=== PATIENT | male | born 1985 | race Caucasian/White ===

== ENCOUNTER 2019-02-28 02:45 | Observation (INO) | payer BC, OTHER ==
[2019-02-28 07:49] LABS: Troponin I Less than 0.010 ng/mL (< 0.028)
[2019-02-28] MEDS ORDERED: Senokot S 8.6-50 MG TAB PO PRN (10:17)
[2019-02-28] MEDS ORDERED: Ondansetron PF 4 MG/2 ML Vial IVP PRN (10:17)
[2019-02-28] MEDS ORDERED: Ondansetron ODT 4 MG TAB PO PRN (10:17)
[2019-02-28] MEDS ORDERED: Calcium Carbonate 500 MG ChewTAB PO PRN (10:17)
[2019-02-28] MEDS ORDERED: Nitroglycerin 0.4 MG TAB (25 Tab Bottle) PO PRN (10:17)
[2019-02-28] MEDS ORDERED: Acetaminophen 325 MG TAB PO PRN (10:17)
[2019-02-28 10:37] LABS: Troponin I Less than 0.010 ng/mL (< 0.028)
--- NOTE | 2019-02-28 11:05 | HP ---
PRIMARY CARE: The patient sees Dr. Cedeño, in [place], [place]. CHIEF COMPLAINT: Chest discomfort. HISTORY OF PRESENT ILLNESS: The patient is a 33-year-old male with hypertension, CKD stage 3, tobacco dependence, and strong family history of heart disease, presented to the emergency room with chest discomfort. The chest discomfort started yesterday around 8:00 p.m. while he was working on his computer. It was dull in nature/squeezing in nature, along with diaphoresis and shortness of breath. The pain was radiating to his left arm. He denies any nausea, vomiting. No heartburn, dyspepsia, fever, chills, cough, shortness of breath, wheezing reported. Over the last 2 months, patient gets short of breath when he exercises. He denies recent immobilization travel. In the emergency room, his initial vital signs showed temperature 98.5, respiration of 22, pulse of 100, blood pressure of 141/94 with O2 saturation 96% on room air. PAST MEDICAL HISTORY: 1. Hypertension. 2. CKD stage 3. 3. ADHD. 4. Strong family history of heart disease. PAST SURGICAL HISTORY: Hernia repair at the age of 4. ALLERGIES: NO KNOWN DRUG ALLERGIES. CURRENT HOME MEDICATION: 1. Lisinopril 10 mg daily. 2. Adderall 20 mg daily. SOCIAL HISTORY: The patient currently lives at home. He works in [employer]. He chews tobacco. Denies any alcohol or drug use. FAMILY HISTORY: Positive for premature coronary artery disease. REVIEW OF SYSTEMS: All other review of systems was reviewed and were found negative. PHYSICAL EXAMINATION: VITAL SIGNS: As discussed above. GENERAL: A 33-year-old male, in no apparent distress. Chest discomfort improved after metoprolol in the emergency room. HEENT: Head atraumatic, normocephalic. Sclerae anicteric. Moist mucous membranes. No oral lesion. NECK: Supple. No JVD appreciated. No carotid bruit. LUNGS: Clear to auscultation bilaterally. No wheezing, rales, or rhonchi. HEART: S1 and S2 present. Regular rate and rhythm. No rubs, gallops, or significant murmurs appreciated. ABDOMEN: Soft, nontender. Bowel sounds present. EXTREMITIES: No edema or calf tenderness. PERIPHERAL VASCULAR: Radial pulses palpable bilaterally and equal. NEUROLOGIC: Grossly nonfocal. Moves all 4 extremities. PSYCHIATRY: Alert, awake, oriented x3. LABORATORY FINDINGS: Troponin negative. Creatinine 1.5 with BUN of 12. WBC 8.4 with hemoglobin 16.9. Creatinine was 1.51. EKG by my review showed sinus rhythm with nonspecific ST-T wave changes. His chest x-ray by my review was negative for infiltrate. IMPRESSION: 1. Chest discomfort. 2. Hypertension. 3. Chronic kidney disease stage 3. 4. Attention deficit hyperactivity disorder. 5. Family history of heart disease. 6. Tobacco dependence. PLAN: The patient will be monitored as 23-hour observation. Serial troponin's are negative. We will get exercise Cardiolite stress test due to intermediate probability for coronary artery disease. He also has HeartScore of 3. He has strong family history of heart disease. We will continue aspirin. We will check fasting lipid profile in a.m. Lifestyle modification was emphasized including tobacco cessation. We will resume lisinopril. Plan of care was discussed with the patient in detail. He stated understanding. Job ID: [id number]
[2019-02-28] MEDS ORDERED: Lisinopril 10 MG TAB PO SCH (13:00)
--- NOTE | 2019-02-28 15:34 | NM ---
NUCLEAR MEDICINE CARDIAC PERFUSION EXAMINATION WITH EJECTION FRACTION: 02/28/19 HISTORY: 33-year-old male with chest pain. TECHNIQUE: A single day nuclear medicine cardiac perfusion examination was performed. Rest images were obtained using 10 millicuries of technetium 99m Sestamibi. Stress images were obtained using 27 millicuries of technetium 99m Sestamibi and Lexiscan. This was given as the patient did not achieved 85% maximum pr edicted heart rate on a treadmill using a Krishna protocol. FINDINGS: Tomographic images show no reversible perfusion defects. A fixed defect at the apex may represent claudio st wall attenuation. Gated images show global hypokinesis with an ejection fraction of 43%. EDV is 142 mL. LHR is 0.4. TID is 1.28. IMPRESSION: 1. Small fixed defect at the apex may represent chest wall attenuation. 2. Poor ejection fraction and global hypokinesis. POS: TPC
[2019-02-28] MEDS ORDERED: Regadenoson 0.4 MG/5 ML SYRINGE ONE (16:23)
[2019-03-01] MEDS ORDERED: Lisinopril 10 MG TAB PO SCH (09:00)
[2019-03-01] MEDS ORDERED: Aspirin 325 mg Enteric Coated Tablet PO SCH (09:00)
--- NOTE | 2019-03-03 07:17 | DIS ---
DATE OF ADMISSION: 02/28/2019 DATE OF DISCHARGE: 02/28/2019 DISCHARGE DISPOSITION: Home. Follow up with primary care physician. Primary care physician, Dr. Cedeño in [place], [place]. Echocardiogram as outpatient is recommended. Primary care physician advised to follow. BRIEF HOSPITAL COURSE: The patient is a 33-year-old male with hypertension, CKD stage 3, and tobacco dependence, presented to the emergency room with chest discomfort. Please refer to the history and physical dictated earlier for further details. The patient was admitted to the hospital with a diagnosis of chest discomfort rule out acute coronary syndrome. Serial troponins were negative. Due to elevated heart score and family history of heart disease, he underwent a Cardiolite stress test that was negative for reversible ischemia. Ejection fraction was 43% with global hypokinesis. He was advised to follow up with Cardiology as outpatient for an echocardiogram. He is chest pain free at this time. FINAL DIAGNOSES: 1. Chest discomfort, acute coronary syndrome ruled out. 2. No reversible ischemia on the stress test. 3. Ejection fraction of 43% with global hypokinesis on the stress test. The patient preferred to get an echocardiogram as outpatient. 4. Chronic kidney disease, stage 3. 5. Hypertension. 6. Attention deficit hyperactivity disorder. 7. Family history of heart disease. 8. Tobacco dependence. PLAN: Plan of care was discussed with the patient and the family in detail, they stated understanding. Job ID: [id number]
--- NOTE | 2019-03-06 14:28 | STRESS ---
Acquisition Time: 2019-02-28 12:48:00 Total Exercise Time: 00:10:58 Test Indications: CHEST PAIN Medications: Protocol: RASHAD Max HR: 131 BPM 70% of Pred: 186 BPM Max BP: 132/088 mmHG Max Work Load: 13.7 METS RESTING ECG: NORMAL SINUS RHYTHM AT 74 BPM SYMPTOMS: DYSPNEA NORMAL BP RESPONSE ECTOPY: NONE ECG STRESS: TRANSIENT T-WAVE INVERSION WITH LEXISCAN INFUSION INTERPRETATION: INDETERMINATE ECG/AWAIT NUCLEAR IMAGES FOR DEFINITIVE DIAGNOSIS Confirmed by ALLIE AYON ELLEN ([id number]) on 03/06/2019 2:28:02 PM Referred By: MD Tsering BERGER Confirmed By:LOGAN AYON PA-C
== END 2019-02-28 15:53 | disposition home or self-care (01) ==
LOC: ERS 02:45 → ERHOLD 04:42
PROVIDERS: ADMIT Internal Medicine; ATTEND Internal Medicine
DX: R07.89 Other chest pain (principal); I12.9 Hypertensive chronic kidney disease with stage 1 through stage 4 chronic kidney disease, or unspecified chronic kidney disease; N18.3 Chronic kidney disease, stage 3 (moderate); F20.0 Paranoid schizophrenia; F90.9 Attention-deficit hyperactivity disorder, unspecified type; F17.220 Nicotine dependence, chewing tobacco, uncomplicated; Z79.899 Other long term (current) drug therapy; Z98.890 Other specified postprocedural states
CPT/HCPCS: 36415; 78452; 84484; 93005; 93017; A9500; G0378; J2785

== ENCOUNTER 2019-07-08 20:19 | Inpatient (IN) | payer BC ==
[2019-07-08] MEDS ORDERED: Lorazepam 2 MG/ML VIAL ONE (20:58)
[2019-07-08] MEDS ORDERED: Magnesium 2 GM/50 ML BAG (IN WATER) ONE (20:58)
[2019-07-08] MEDS ORDERED: Aspirin 325 MG TAB ONE (20:58)
[2019-07-08] MEDS ORDERED: Enoxaparin Sodium 100 MG/ML SYRINGE ONE (20:58)
[2019-07-08] MEDS ORDERED: Diltiazem HCl 125 MG, Admixture Fee 1 EACH in Sodium Chloride 0.9% 100 ML IVPB SCH (21:45)
[2019-07-08 23:06] VITALS: BMI 32.2
[2019-07-08] MEDS ORDERED: Ondansetron PF 4 MG/2 ML Vial IVP PRN (23:30)
[2019-07-08] MEDS ORDERED: Acetaminophen 325 MG TAB PO PRN (23:30)
[2019-07-08] MEDS ORDERED: Ondansetron ODT 4 MG TAB SL PRN (23:30)
[2019-07-09] MEDS ORDERED: NS 0.9% w/ 20 MEQ KCL 1,000 ML/1,000 ML BAG IV SCH (00:45)
[2019-07-09] MEDS ORDERED: Calcium Carbonate 500 MG ChewTAB PO PRN (01:02)
[2019-07-09] MEDS ORDERED: Senokot S 8.6-50 MG TAB PO PRN (01:02)
[2019-07-09] MEDS ORDERED: Nitroglycerin 0.4 MG TAB (25 Tab Bottle) PO PRN (01:08)
--- NOTE | 2019-07-09 01:26 | HP ---
PRIMARY CARE PHYSICIAN: Dr. Gala Santana, [place]. The patient was seen and examined on 07/08. CHIEF COMPLAINT: Palpitations. HISTORY OF PRESENT ILLNESS: The patient is a 33-year-old male who presented to the emergency room at [facility] with above complaints. The patient was admitted at this facility in February of this year for chest discomfort. He underwent a stress test that was negative for reversible ischemia. His ejection fraction on the stress test was 43% with global hypokinesis. He was advised to get an echocardiogram as outpatient. He also has attention deficit hyperactivity disorder and is on Adderall. The patient presented to the emergency room with palpitations that has been ongoing for last 24 hours on and off. At this time, the palpitations lasted longer. He denies any chest discomfort, shortness of breath, lightheadedness, dizziness, or syncope. He claims to have a lot of stress lately. In the emergency room at [facility], he was found to have heart rate in 170s. He was started on Cardizem drip. He received potassium supplementation at the emergency room. PAST MEDICAL HISTORY: 1. Hypertension. 2. CKD stage 3. 3. ADHD. 4. Family history of heart disease. PAST SURGICAL HISTORY: Hernia repair at the age of 4. ALLERGIES: NO KNOWN DRUG ALLERGIES. CURRENT HOME MEDICATIONS: 1. Lisinopril 20 mg daily. 2. Protonix 40 mg daily. 3. Amphetamine 20 mg daily. SOCIAL HISTORY: The patient currently lives at home with his family. He [place] in [place]. He chews tobacco. He also consumes caffeinated sodas. No alcohol or drug use. FAMILY HISTORY: Positive for heart disease. REVIEW OF SYSTEMS: All other review of systems was reviewed and was found negative. PHYSICAL EXAMINATION: VITAL SIGNS: Initial vital signs at in the emergency room showed temperature 98.1, respirations of 26, pulse rate of 196, blood pressure of 145/110 with O2 saturation 100% on room air. GENERAL: A 33-year-old male, in no apparent distress, on Cardizem drip. HEENT: Head, atraumatic and normocephalic. Sclerae anicteric. Moist mucous membranes. No oral lesion. NECK: Supple. No JVD appreciated. No carotid bruit. LUNGS: Clear to auscultation bilaterally. No wheezing, rales, or rhonchi. HEART: S1 and S2 present. Irregularly irregular. No rubs or gallops. ABDOMEN: Soft, nontender. Bowel sounds present. EXTREMITIES: No edema or calf tenderness. NEUROLOGICAL: Grossly nonfocal. Moves all 4 extremities. PSYCHIATRIC: Alert, awake, oriented x3. SKIN: Warm and dry. LYMPH NODES: No palpable lymph nodes in the neck. PERIPHERAL VASCULAR: Radial pulses palpable bilaterally. MUSCULOSKELETAL: No joint swelling or tenderness. LABORATORY FINDINGS: CBC showed WBC 8.8, hemoglobin 17.6, hematocrit 54.4, platelet of 244. Chemistry showed sodium 138, potassium 3.2, chloride 101, bicarb 26, BUN 14, creatinine 1.52. AST of 40, ALT of 79. TSH was normal. Lactic acid 1.8. Urine drug screen was positive for amphetamine. Urinalysis was negative. Chest x-ray earlier this year was negative for acute findings. IMPRESSION: 1. Palpitations secondary to atrial fibrillation with rapid ventricular response. 2. Attention deficit hyperactivity disorder, on Adderall. 3. Chronic kidney disease, stage 3. 4. Hypertension. 5. Family history of heart disease. 6. Tobacco dependence. 7. Suspected sleep apnea. 8. Obesity with a BMI of 32.2. 9. Hypokalemia. PLAN: 1. The patient will be monitored on the telemetry unit. It would be kept n.p.o. We will consult Cardiology. He received 1 dose of Lovenox at 9:30 pm. Lovenox will be continued until further recommendations by Cardiology. Echocardiogram will be obtained. Replace potassium. Recheck labs in a.m. Gentle hydration while n.p.o. 2. We will hold Adderall and lisinopril. Plan of care was discussed with the patient in detail. He stated understanding. Job ID: [id number] [facility]
[2019-07-09] MEDS: Sodium Chloride 0.9% 1,000 ML IV SCH (01:33)
[2019-07-09 04:46] LABS: #Basophils 0.1 thou/uL (0.0-0.2); #Eosinphils 0.1 thou/uL (0.0-0.7); #Lymphocytes 2.7 thou/uL (1.20-3.40); #Monocytes 0.9 thou/uL (0.11-0.59); %Basophils 0.6 % (0.0-1.0); %Eosinophils 1.2 % (0.0-10.0); %Lymphocytes 30.8 % (21.0-51.0); %Monocytes 10.6 % (0.0-10.0); %Neutrophils 56.8 % (42.0-75.0); Hemoglobin 15.9 g/dL (14.0-18.0); Mean Corpuscular HGB CONC 34.8 g/dL (32.0-36.0); Mean Corpuscular Hemoglobin 32.5 pg (27.0-31.0); Mean Corpuscular Volume 93.2 fL (78.0-98.0); Mean Platelet Volume 8.1 fL (7.4-10.4); Platelet Count 195 thou/uL (130-400); RBC Distribution Width 12.3 % (11.5-14.5); White Blood Cell (WBC) Count 8.7 thou/uL (4.8-10.8)
[2019-07-09 05:06] LABS: Albumin 3.5 g/dL (3.5-5.0); Anion Gap 8 mmol/L (10-20); BUN (Urea Nitrogen) 11 mg/dL (8.9-20.6); BUN/Creatinine Ratio 9.65; Calc. Creatinine Clearance 132 mL/min (70-130); Calcium 8.7 mg/dL (7.8-10.44); Carbon Dioxide 22 mmol/L (22-29); Chloride 112 mmol/L (98-107); Estimated GFR-MDRD 74; Glucose 106 mg/dL (70-105); Magnesium 2.2 mg/dL (1.6-2.6); Phosphorus 2.9 mg/dL (2.3-4.7); Potassium 3.8 mmol/L (3.5-5.1); Sodium 138 mmol/L (136-145)
[2019-07-09] MEDS: Metoprolol Tartrate 25 MG TAB PO SCH ×2 (09:00→22:17)
[2019-07-09] MEDS ORDERED: Enoxaparin Sodium 100 MG/ML SYRINGE SC SCH (10:00)
--- NOTE | 2019-07-09 13:19 | PDOC.HOSPP ---
- Subjective Encounter Date: 07/09/19 Encounter Time: 08:00 Subjective: Patient seen and examined. No new complaints. No overnight events - Objective Vital Signs & Weight: Vital Signs (12 hours) Temp Pulse Resp BP Pulse Ox 07/09/19 11:58 98.2 F 71 18 122/72 97 07/09/19 08:00 97.8 F 64 14 114/59 L 96 07/09/19 04:20 97.5 F L 87 18 103/66 95 07/09/19 03:00 70 18 102/53 L 95 Weight Weight 224 lb 8 oz I&O: 07/08/19 07/09/19 07/10/19 06:59 06:59 06:59 Intake Total 500 Output Total 720 Balance -220 Result Diagrams: 07/09/19 04:25 07/09/19 04:25 EKG Reviewed by me: Yes ROS - Review of Systems Constitutional: denies: fever, chills, sweats, weakness, malaise, other Eyes: denies: pain, vision change, conjunctivae inflammation, eyelid inflammation, redness, other ENT: denies: ear pain, ear discharge, nose pain, nose discharge, nose congestion , mouth pain, mouth swelling, throat pain, throat swelling, other Respiratory: denies: cough, dry, shortness of breath, hemoptysis, SOB with excertion, pleuritic pain, sputum, wheezing, other Cardiovascular: denies: chest pain, palpitations, orthopnea, paroxysmal noc. dyspnea, edema, light headedness, other Gastrointestinal: denies: nausea, vomitting, abdominal pain, diarrhea, constipation, melena, hematochezia, other Genitourinary: denies: dysuria, frequency, incontinence, hematuria, retention, other Musculoskeletal: denies: neck pain, shoulder pain, arm pain, back pain, hand pain, leg pain, foot pain, other Skin: denies: rash, lesions, troy, bruising, other - Medication Medications: Active Medications Generic Name Dose Route Start Last Admin Trade Name Freq PRN Reason Stop Dose Admin Sodium Chloride 1,000 mls @ 70 mls/hr 07/09/19 01:00 07/09/19 01:33 Normal Saline 0.9% IV 1,000 mls .[id number] POLLO Administration Metoprolol Tartrate 12.5 mg 07/09/19 09:00 07/09/19 09:00 Lopressor PO 12.5 mg BID POLLO Administration - Exam NAD, awake alert Eye: PERRL, anicteric sclera ENT: normocephalic atraumatic, no oropharyngeal lesions Neck: supple, symmetric, no JVD Heart: RRR, no murmur, no gallops Respiratory: CTAB, no wheezes, no rales Gastrointestinal: soft, non-tender, non-distended, normal bowel sounds, no palpable masses, no hepatomegaly Extremities: no cyanosis, no clubbing, no edema Skin: normal turgor, no lesions Neurological: CN's grossly intact, normal sensation to touch, no focal deficits Musculoskeletal: normal tone, normal strength Psychiatric: normal affect, normal behavior, A&O x 3 Hosp A/P (1) Atrial fibrillation with RVR Code(s): I48.91 - UNSPECIFIED ATRIAL FIBRILLATION Status: Resolved Plan: currently NSR (2) Hypokalemia Code(s): E87.6 - HYPOKALEMIA Status: Resolved (3) Palpitation Code(s): R00.2 - PALPITATIONS Status: Resolved (4) ADHD Status: Chronic (5) Obesity (BMI 30.0-34.9) Code(s): E66.9 - OBESITY, UNSPECIFIED Status: Chronic - Plan old records reviewed/req, plan discussed w/ family pt converted to NSR DC cardizem drip echo pending cardiology consulted monitor on tele medication reviewed as above symptomatic treatment
--- NOTE | 2019-07-09 15:32 | CON ---
DATE OF CONSULTATION: REASON FOR CONSULTATION: Atrial fibrillation. HISTORY OF PRESENT ILLNESS: Mr. Reed is a 33-year-old gentleman with no significant past medical history except for ADD. He states he recently developed palpitations and shortness of breath. He proceeded to the emergency room and was found to be in atrial fibrillation with RVR. He was placed on IV Cardizem and converted to sinus rhythm. He states these episodes of palpitations occur every several days. He has proceeded to the emergency room on several occasions, but they have not found the source. He is currently on Adderall for ADD. He states that he has not taken the medication over the last 3 days. There are also signs and symptoms of obstructive sleep apnea. His CHADS-VASc score is 1 with a history of hypertension. PAST MEDICAL HISTORY: Hypertension, ADHD, and hernia repair. ALLERGIES: NONE. MEDICATIONS: 1. Lisinopril. 2. Protonix. 3. Adderall. SOCIAL HISTORY: Positive tobacco use. Positive caffeine use. REVIEW OF SYSTEMS: A 10-point review of systems is reviewed as above, otherwise negative. PHYSICAL EXAMINATION: GENERAL: Patient is a pleasant male, who is in no acute distress. The patient appears their stated age. VITAL SIGNS: Blood pressure 122/72, pulse 71, and temperature 98.2. NEUROLOGIC: The patient is alert and oriented x3 with no focal neurologic deficits. HEENT: Sclerae without icterus. Mouth has moist mucous membranes with normal pallor. NECK: No JVD. Carotid upstroke brisk. No bruits bilaterally. LUNGS: Clear to auscultation with unlabored respirations. BACK: No scoliosis or kyphosis. CARDIAC: Regular rate and rhythm with normal S1 and S2. No S3 or S4 noted. No significant rubs, murmurs, thrills, or gallops noted throughout the precordium. PMI is not displaced. There is no parasternal heave. ABDOMEN: Soft, nontender, nondistended. No peritoneal signs present. No hepatosplenomegaly. No abnormal striae. EXTREMITIES: 2+ femoral and 2+ dorsalis pedis pulses. No cyanosis, clubbing, or edema. SKIN: No gross abnormalities. PERTINENT LABORATORY DATA: Hemoglobin 15.9 and platelet count of 195. Creatinine 1.1. IMAGING STUDIES: EKG; normal sinus rhythm, normal EKG. IMPRESSION: New-onset atrial fibrillation. RECOMMENDATIONS: Mr. Reed's CHADS-VASc score is 1. I discussed aspirin versus anticoagulation therapy. Risks and benefits of both were discussed. He opts for full-dose aspirin at 325 one p.o. q.a.m. We would also recommend Protonix 40 daily. We would also ask him to seek an alternative to Adderall, which may be difficult. He would also refrain from caffeine and alcohol. His TSH was within normal limits. We would also review his echo. If overall LVEF is normal, it would be okay from my standpoint to discharge him home with close outpatient followup. Job ID: [id number]
[2019-07-09] MEDS ORDERED: Communication Order-Pharmacy FS SCH (18:45)
[2019-07-10] MEDS ORDERED: CEFAZOLIN 2 GM, Admixture Fee 1 EACH in Sodium Chloride 0.9% 100 ML IVPB SCH (04:15)
[2019-07-10] MEDS: Metoprolol Tartrate 25 MG TAB PO SCH ×2 (05:51→22:02)
[2019-07-10] MEDS: Sodium Chloride 0.9% 1,000 ML IV SCH ×3 (05:52→18:52)
[2019-07-10] MEDS ORDERED: Lidocaine 1% (PF) 30 ML VIAL ONE (06:51)
[2019-07-10] MEDS ORDERED: Heparin 10,000 UNITS/1 ML VIAL ONE (07:41)
[2019-07-10] MEDS ORDERED: Verapamil 5 MG/2 ML VIAL ONE (07:41)
[2019-07-10] MEDS ORDERED: Nitroglycerin 100MG/250ML BOT 250 ML ONE (07:41)
[2019-07-10] MEDS ORDERED: Midazolam HCl 2 mg/2 ml Vial ONE (07:49)
[2019-07-10] MEDS ORDERED: Fentanyl 100 MCG/2 ML VIAL ONE (07:49)
--- NOTE | 2019-07-10 08:16 | PRG ---
DATE OF SERVICE: 07/09/2019 Mr. Good was seen on 07/09/2019. His LVEF does appear diminished at 40% to 45%. Given his episode of chest pain, low EF and atrial fibrillation, continuous tobacco abuse, we would recommend coronary angiography and possible PCI. I discussed the procedure in full detail with Mr. Reed. Risks included not limited to the following: , stroke, AL, need for emergency surgery, loss of limb, bleeding, and infection, as well as a reaction to the dye causing kidney failure and needing long-term dialysis. I also discussed the risks of PCI to include all of the above including coronary dissection and perforation in addition to acute stent thrombosis and restenosis. All questions about the procedure were answered. Given the above, the patient agreed to proceed with coronary angiography and possible PCI. All questions answered. I also discussed drug coated versus nondrug stent placement. We will proceed if needed. Further recommendations pending the above. Job ID: [id number]
[2019-07-10] MEDS ORDERED: Iopamidol 370 76% 100 ML VIAL ONE (14:59)
[2019-07-11] MEDS: Sodium Chloride 0.9% 1,000 ML IV SCH ×2 (01:21→13:23)
--- NOTE | 2019-07-11 06:35 | PDOC.HOSPP ---
- Subjective Encounter Date: 07/10/19 Encounter Time: 15:30 Subjective: pt up in bed no complains but is tired of having intermittent afib - Objective Vital Signs & Weight: Vital Signs (12 hours) Temp Pulse Resp BP Pulse Ox 07/11/19 03:15 97.5 F L 64 17 102/57 L 99 07/10/19 23:43 97.5 F L 67 16 121/73 100 07/10/19 20:00 97.7 F 16 L 16 112/61 95 Weight Weight 224 lb 8 oz I&O: 07/09/19 07/10/19 07/11/19 06:59 06:59 06:59 Intake Total 169 237 8649 Output Total 720 1040 Balance -220 250 440 Result Diagrams: 07/09/19 04:25 07/09/19 04:25 ROS - Review of Systems Respiratory: denies: cough, dry, shortness of breath, hemoptysis, SOB with excertion, pleuritic pain, sputum, wheezing, other Cardiovascular: denies: chest pain, palpitations, orthopnea, paroxysmal noc. dyspnea, edema, light headedness, other Gastrointestinal: denies: nausea, vomitting, abdominal pain, diarrhea, constipation, melena, hematochezia, other - Medication Medications: Active Medications Generic Name Dose Route Start Last Admin Trade Name Sumitq PRN Reason Stop Dose Admin Acetaminophen 650 mg 07/08/19 23:30 07/10/19 10:21 Tylenol PO 650 mg Q4H PRN Administration Headache/Fever or Pain Sodium Chloride 1,000 mls @ 100 mls/hr 07/10/19 06:00 07/11/19 01:21 Normal Saline 0.9% IV 1,000 mls .Q10H POLLO Administration Metoprolol Tartrate 12.5 mg 07/09/19 09:00 07/10/19 22:02 Lopressor PO 12.5 mg BID POLLO Administration Pantoprazole Sodium 40 mg 07/10/19 09:00 07/10/19 10:22 Protonix PO Not Given DAILY POLLO - Exam Neck: negative: supple, symmetric, no JVD, no thyromegaly, no lymphadenopathy, no carotid bruit, JVD Heart: negative: RRR, no murmur, no gallops, no rubs, normal peripheral pulses, irregular, diminshed peripheral pulses, murmur present, II/IV, III/IV Respiratory: negative: CTAB, no wheezes, no rales, no ronchi, normal chest expansion, no tachypnea, normal percussion, rales, rhonchi, tachypneic, wheezes Hosp A/P (1) Atrial fibrillation with RVR Code(s): I48.91 - UNSPECIFIED ATRIAL FIBRILLATION Status: Resolved (2) ADHD Status: Chronic (3) Obesity (BMI 30.0-34.9) Code(s): E66.9 - OBESITY, UNSPECIFIED Status: Chronic (4) Hypokalemia Code(s): E87.6 - HYPOKALEMIA Status: Resolved - Plan pt's cath is negative but his ef is low. will get ep to see him. pt has been having afib on an off since 4 years. He at times takes adderall but not on a regular basis. His chadvasc score is 2 he will need eliquis. i will put him on asa now and wait for EP's recommendation.
[2019-07-11 08:45] LABS: #Eosinphils 0.1 thou/uL (0.0-0.7); #Lymphocytes 1.5 thou/uL (1.20-3.40); #Monocytes 0.6 thou/uL (0.11-0.59); #Neutrophils 3.9 thou/uL (1.40-6.50); %Basophils 0.5 % (0.0-1.0); %Eosinophils 2.1 % (0.0-10.0); %Lymphocytes 24.4 % (21.0-51.0); %Monocytes 10.3 % (0.0-10.0); %Neutrophils 62.7 % (42.0-75.0); Hemoglobin 16.4 g/dL (14.0-18.0); Mean Corpuscular HGB CONC 34.1 g/dL (32.0-36.0); Mean Corpuscular Hemoglobin 31.7 pg (27.0-31.0); Mean Corpuscular Volume 92.9 fL (78.0-98.0); Mean Platelet Volume 7.7 fL (7.4-10.4); Platelet Count 208 thou/uL (130-400); RBC Distribution Width 12.1 % (11.5-14.5); Red Blood Cell (RBC) Count 5.18 mill/uL (4.70-6.10); White Blood Cell (WBC) Count 6.2 thou/uL (4.8-10.8)
[2019-07-11] MEDS ORDERED: Aspirin 81 mg Enteric Coated Tablet PO SCH (09:00)
[2019-07-11 09:07] LABS: ALT (SGPT) 44 U/L (8-55); AST (SGOT) 19 U/L (5-34); Albumin 3.8 g/dL (3.5-5.0); Alkaline Phosphatase 55 U/L (40-150); Anion Gap 9 mmol/L (10-20); BUN (Urea Nitrogen) 9 mg/dL (8.9-20.6); Bilirubin, Total 0.7 mg/dL (0.2-1.2); Calc. Creatinine Clearance 113 mL/min (70-130); Calcium 8.9 mg/dL (7.8-10.44); Carbon Dioxide 28 mmol/L (22-29); Chloride 105 mmol/L (98-107); Estimated GFR-MDRD 62; Globulin 2.4 g/dL (2.4-3.5); Glucose 99 mg/dL (70-105); Potassium 4.1 mmol/L (3.5-5.1); Protein, Total 6.2 g/dL (6.0-8.3); Sodium 138 mmol/L (136-145)
--- NOTE | 2019-07-11 09:48 | RAD ---
TWO VIEW CHEST: History: Fever. FINDINGS: The lung davis are clear. No infiltrate. Heart and mediastinum unremarkable. Osseous structures unre markable. IMPRESSION: No acute process. POS: T[facility]
[2019-07-11] MEDS: Metoprolol Tartrate 25 MG TAB PO SCH (09:58)
[2019-07-11 10:57] LABS: Bilirubin Negative (Negative); Blood, Urine Negative (Negative); Clarity Clear (Clear); Glucose, Urine (Dipstick) Normal (Negative); Leukocyte Negative Leu/uL (Negative); Nitrite Negative (Negative); Protein, Urine (Dipstick) Negative (Neg-Trace); Urobilinogen Normal mg/dL (Less than 2)
--- NOTE | 2019-07-11 12:11 | PDOC.HOSPP ---
- Subjective Encounter Date: 07/11/19 Encounter Time: 08:15 Subjective: Patient seen and examined. No new complaints. No overnight events - Objective Vital Signs & Weight: Vital Signs (12 hours) Temp Pulse Resp BP Pulse Ox 07/11/19 07:35 98.2 F 84 18 113/65 95 07/11/19 03:15 97.5 F L 64 17 102/57 L 99 Weight Weight 224 lb 8 oz I&O: 07/10/19 07/11/19 07/12/19 06:59 06:59 06:59 Intake Total 250 1480 Output Total 1040 Balance 250 440 Result Diagrams: 07/11/19 08:36 07/11/19 08:36 EKG Reviewed by me: Yes (nsr) ROS - Review of Systems Constitutional: denies: fever, chills, sweats, weakness, malaise, other Eyes: denies: pain, vision change, conjunctivae inflammation, eyelid inflammation, redness, other ENT: denies: ear pain, ear discharge, nose pain, nose discharge, nose congestion , mouth pain, mouth swelling, throat pain, throat swelling, other Respiratory: denies: cough, dry, shortness of breath, hemoptysis, SOB with excertion, pleuritic pain, sputum, wheezing, other Cardiovascular: denies: chest pain, palpitations, orthopnea, paroxysmal noc. dyspnea, edema, light headedness, other Gastrointestinal: denies: nausea, vomitting, abdominal pain, diarrhea, constipation, melena, hematochezia, other Genitourinary: denies: dysuria, frequency, incontinence, hematuria, retention, other Musculoskeletal: denies: neck pain, shoulder pain, arm pain, back pain, hand pain, leg pain, foot pain, other Skin: denies: rash, lesions, troy, bruising, other - Medication Medications: Active Medications Generic Name Dose Route Start Last Admin Trade Name Freq PRN Reason Stop Dose Admin Acetaminophen 650 mg 07/08/19 23:30 07/10/19 10:21 Tylenol PO 650 mg Q4H PRN Administration Headache/Fever or Pain Aspirin 81 mg 07/11/19 09:00 07/11/19 09:58 Ecotrin PO 81 mg DAILY POLLO Administration Sodium Chloride 1,000 mls @ 100 mls/hr 07/10/19 06:00 07/11/19 01:21 Normal Saline 0.9% IV 1,000 mls .Q10H POLLO Administration Metoprolol Tartrate 12.5 mg 07/09/19 09:00 07/11/19 09:58 Lopressor PO 12.5 mg BID POLLO Administration Pantoprazole Sodium 40 mg 07/10/19 09:00 07/11/19 09:59 Protonix PO Not Given DAILY POLLO - Exam NAD, awake alert Eye: PERRL, anicteric sclera ENT: normocephalic atraumatic, no oropharyngeal lesions Neck: supple, symmetric, no JVD Heart: RRR, no murmur, no gallops Respiratory: CTAB, no wheezes, no rales Gastrointestinal: soft, non-tender, non-distended Extremities: no cyanosis, no clubbing, no edema Skin: normal turgor, no lesions Neurological: CN's grossly intact, normal sensation to touch, no focal deficits Musculoskeletal: normal tone, normal strength, no muscle wasting Psychiatric: normal affect, normal behavior, A&O x 3 Hosp A/P (1) Atrial fibrillation with RVR Code(s): I48.91 - UNSPECIFIED ATRIAL FIBRILLATION Status: Resolved (2) Hypokalemia Code(s): E87.6 - HYPOKALEMIA Status: Resolved (3) Palpitation Code(s): R00.2 - PALPITATIONS Status: Resolved (4) ADHD Status: Chronic (5) Obesity (BMI 30.0-34.9) Code(s): E66.9 - OBESITY, UNSPECIFIED Status: Chronic - Plan old records reviewed/req, plan discussed w/ family monitor on tele medication reviewed as above symptomatic treatment EP consulted as he had fever, we did cbc, cmp, chest xray, tests are OK continue IVF expecting discharge tomorrow
[2019-07-11 14:38] VITALS: TEMP 97.8
[2019-07-11 15:56] VITALS: BP 122/72
--- NOTE | 2019-07-11 18:13 | CON ---
DATE OF CONSULTATION: 07/11/2019 HISTORY OF PRESENT ILLNESS: I am [facility] as an electrophysiology senior energy consultant. His problems are; 1. Recurrent palpitations with newly documented atrial fibrillation with rapid rates. 2. Nonischemic cardiomyopathy with LVEF on echo at 40% to 45%. a. Left heart catheterization was negative for significant coronary artery disease. 3. History of hypertension. 4. Severe anxiety. ALLERGIES: NONE NOTED. MEDICATIONS: At home, include; 1. Lisinopril. 2. Protonix. 3. Amphetamine. SUBJECTIVE: Mr. Reed is here due to rapid palpitations, last about 13 hours, eventually spontaneous terminating in the hospital. He is experiencing chest discomfort associated with palpitations for a long period of time. He had the palpitation sensation back in age 18, which later resolved, but for the last 4-5 years, he had recurrent episodes again. This is the first time the atrial arrhythmia was documented. Most of the time by time he reaches ER he already back in normal rhythm. At this time, he was found to be atrial fibrillation and was started on IV diltiazem. His symptoms improved eventually. He is back to normal rhythm. He underwent further evaluation with Dr. Rubi with a repeat echocardiogram with findings as above. He also underwent a left heart catheterization, demonstrating no significant coronary artery disease. The prior negative stress test in 02/2019, LVEF at that point was 43%. REVIEW OF SYSTEMS: Rest of 12-point review of system currently unremarkable. PAST HISTORY: As above. The patient has attention deficit disorder, on Adderall. The patient had elevated creatinine levels up to 1.5, but currently is normalizing. SOCIAL HISTORY: The patient denies smoking, EtOH, or drug abuse. FAMILY HISTORY: Significant for heart disease. OBJECTIVE DATA: VITAL SIGNS: Blood pressure 130/61, heart rate 68, respiratory rate 18, and temperature 97.8 degrees Fahrenheit. GENERAL: This is an alert and oriented man, in no apparent distress. NECK: Supple. Jugular veins not distended. CHEST: Coarse with crackles. HEART: Sounds are regular rate and rhythm. No murmur or gallop. ABDOMEN: Benign. Bowel sounds are positive. EXTREMITIES: Lower extremities without edema, clubbing, or cyanosis. Pulses are adequate. NEUROLOGIC: The patient is nonfocal. MUSCULOSKELETAL: No joint swelling or deformity. SKIN: Without rash. DATABASE: EKG is reviewed, revealing initially atrial fibrillation, later a sinus rhythm ensued, narrow QRS seen. No significant QT prolongation. LABORATORY DATA: Hemoglobin is 16.4, white count 6.2, and platelet count is 208. Sodium 138, potassium 4.1, BUN is 9, creatinine was 1.33. AST and ALT are 19 and 44. TSH on 07/08 was 0.85, in normal range. ASSESSMENT AND PLAN: Mr. Reed is a pleasant 33-year-old man with prior history of mild reduced left ventricular ejection fraction on repeated measurements, who has frequent palpitations, frequently recurring on a weekly basis and the longest episode now, brought him here into the hospital, prompting this admission. At this point, clear atrial fibrillation paroxysmal was documented with rapid rates. Eventually, he spontaneously converted back to sinus rhythm. He has likely nonischemic cardiomyopathy based on heart catheterizations. We discussed treatment options, which could include rate control with beta blockers, anticoagulation, antiarrhythmic agents, or ablation procedures. He understands pros and cons, understands the mechanism of atrial fibrillation after our discussion. Eventually, he is leaning towards having a primary ablation performed for atrial fibrillation, which is not unreasonable. Hence, the potential benefit from maintenance of sinus rhythm, which could eventually improve his LV systolic function as well. He is highly symptomatic with these episodes with his anxiety also flaring up each time, creating a vicious cycle. We discussed the ablation procedure, chances of recurrence, bleeding, tamponade, stroke, esophageal damage were all discussed. He understands and willing to proceed. We will schedule him for near date. His CHADS-VASc score is 1 and he has history of hypertension. At this point, we will start him on no anticoagulant as primary service will likely continue post ablation as well. We will schedule him early as an outpatient. Job ID: [id number]
--- NOTE | 2019-07-11 19:24 | DIS ---
DATE OF ADMISSION: 07/08/2019 DATE OF DISCHARGE: 07/11/2019 PRIMARY CARE PHYSICIAN: [facility] Call Admission. DISCHARGE DISPOSITION: Home. PRIMARY DISCHARGE DIAGNOSES: 1. Recurrent palpitation. 2. Atrial fibrillation converted to sinus rhythm, nonischemic cardiomyopathy. SECONDARY DISCHARGE DIAGNOSES: 1. Anxiety disorder. 2. Attention deficit hyperactivity disorder. 3. Hypertension. 4. Gastroesophageal reflux disease. 5. Obesity. PRIMARY PROCEDURE/OPERATION: Cardiac catheterization, normal. RADIOLOGICAL INVESTIGATION: Echocardiography showed low EF 40%. Chest x-ray normal. SIGNIFICANT LABS: 16.4, creatinine 1.3. Urinalysis normal. DISCHARGE MEDICATIONS: 1. Lisinopril 20 mg p.o. daily. 2. Protonix 40 mg p.o. daily. 3. Toprol-XL 25 mg daily. 4. Adderall 1 tablet p.o. daily. CONTRAINDICATION: None. CODE STATUS: Full code. INPATIENT FRAMEMAN: 1. Dr. Rubi. 2. Dr. Kendrick. TEST RESULT PENDING ON DISCHARGE: None. ALLERGIES: NO KNOWN DRUG ALLERGIES. DISCHARGE PLAN: Posthospital, the patient has appointment with Dr. Kendrick on Sunday. HOSPITAL COURSE: The patient was admitted for atrial fibrillation with RVR. The patient was converted to sinus rhythm. Cardiology was consulted. We did echocardiography and he had a low EF and that is why Cardiology did cardiac cath and found with normal coronaries. Science Editor was consulted and they recommended outpatient cardiac ablation procedure on Sunday. The patient wants to go home today. He does not want to stay in the hospital. He had fever yesterday, but per the patient, he did not have any fever and we did necessary workup and that came back negative. Overall, the patient is medically stable for discharge. We sent Toprol-XL prescription to [facility]. Job ID: [id number]
== END 2019-07-11 19:46 | disposition home or self-care (01) | DRG 287 ==
LOC: ERS 20:19 → 2NO 22:49
PROVIDERS: ADMIT Internal Medicine; ATTEND Internal Medicine
PROC: 4A023N7 Measurement of Cardiac Sampling and Pressure, Left Heart, Percutaneous Approach (ICD-10-PCS; principal; 2019-07-11)
PROC: B2151ZZ Fluoroscopy of Left Heart using Low Osmolar Contrast (ICD-10-PCS; 2019-07-11)
PROC: B2111ZZ Fluoroscopy of Multiple Coronary Arteries using Low Osmolar Contrast (ICD-10-PCS; 2019-07-11)
DX: I48.91 Unspecified atrial fibrillation (principal); F90.9 Attention-deficit hyperactivity disorder, unspecified type; F41.9 Anxiety disorder, unspecified; F17.290 Nicotine dependence, other tobacco product, uncomplicated; I12.9 Hypertensive chronic kidney disease with stage 1 through stage 4 chronic kidney disease, or unspecified chronic kidney disease; N18.3 Chronic kidney disease, stage 3 (moderate); E66.9 Obesity, unspecified; E87.6 Hypokalemia; G47.33 Obstructive sleep apnea (adult) (pediatric); I42.8 Other cardiomyopathies; Z68.32 Body mass index [BMI] 32.0-32.9, adult; Z79.899 Other long term (current) drug therapy
CPT/HCPCS: 36415; 71046; 80053; 80069; 81003; 83735; 85025; 93005; 93306; 93458; 94760; 99152; 99153; C1769; J1644; J1650; J2001; J2060; J2250; J3010; J3475; J3490; Q9967

== ENCOUNTER 2019-07-16 06:44 | Observation (INO) | payer BC ==
[2019-07-15 11:17] VITALS: BMI 32.5
[2019-07-16 07:27] LABS: #Basophils 0.1 thou/uL (0.0-0.2); #Eosinphils 0.1 thou/uL (0.0-0.7); #Monocytes 0.8 thou/uL (0.11-0.59); #Neutrophils 3.8 thou/uL (1.40-6.50); %Basophils 1.1 % (0.0-1.0); %Eosinophils 1.5 % (0.0-10.0); %Lymphocytes 29.1 % (21.0-51.0); %Neutrophils 56.3 % (42.0-75.0); Hemoglobin 16.4 g/dL (14.0-18.0); Mean Corpuscular HGB CONC 34.2 g/dL (32.0-36.0); Mean Corpuscular Hemoglobin 31.5 pg (27.0-31.0); Mean Corpuscular Volume 92.2 fL (78.0-98.0); Mean Platelet Volume 8.1 fL (7.4-10.4); Platelet Count 215 thou/uL (130-400); RBC Distribution Width 12.3 % (11.5-14.5); Red Blood Cell (RBC) Count 5.22 mill/uL (4.70-6.10); White Blood Cell (WBC) Count 6.7 thou/uL (4.8-10.8)
[2019-07-16 07:36] LABS: PTT 30.4 SEC (22.9-36.1); Prothrombin Time 13.3 SEC (12.0-14.7)
[2019-07-16 07:46] LABS: Anion Gap 11 mmol/L (10-20); BUN (Urea Nitrogen) 13 mg/dL (8.9-20.6); Calc. Creatinine Clearance 108 mL/min (70-130); Calcium 9.1 mg/dL (7.8-10.44); Carbon Dioxide 25 mmol/L (22-29); Chloride 105 mmol/L (98-107); Estimated GFR-MDRD 60; Glucose 88 mg/dL (70-105); Potassium 4.3 mmol/L (3.5-5.1); Sodium 137 mmol/L (136-145)
[2019-07-16] MEDS ORDERED: Midazolam HCl 2 mg/2 ml Vial ONE ×2 (08:15→09:01)
[2019-07-16] MEDS ORDERED: Fentanyl 100 MCG/2 ML VIAL ONE ×2 (09:01→14:29)
[2019-07-16] MEDS ORDERED: Heparin 10,000 UNITS/1 ML VIAL ONE ×2 (10:05→10:07)
[2019-07-16] MEDS ORDERED: Heparin 25,000 units/D5W 500 ML ONE (10:07)
[2019-07-16] MEDS ORDERED: Isoproterenol 0.2 MG/1 ML AMP ONE (10:07)
[2019-07-16] MEDS ORDERED: Protamine Sulfate 50 MG/5 ML VIAL ONE (10:08)
[2019-07-16] MEDS ORDERED: Lidocaine 1% PF 5 ML VIAL ONE (12:46)
[2019-07-16] MEDS ORDERED: Glycopyrrolate 0.2 MG/ML 5 ML SYRINGE ONE (12:46)
[2019-07-16] MEDS ORDERED: PROPOFOL 200 MG/20 ML VIAL ONE (12:46)
[2019-07-16] MEDS ORDERED: Rocuronium Bromide 10 MG/ML (10ML VIAL) ONE (12:46)
[2019-07-16] MEDS ORDERED: Heparin 30,000 units/30 ml VIAL ONE (12:46)
--- NOTE | 2019-07-16 13:41 | OP ---
DATE OF PROCEDURE: 07/16/2019 PROCEDURES PERFORMED: Electrophysiology study and radiofrequency ablation. REASON FOR PROCEDURE: Mr. Reed is a 33-year-old man with longstanding palpitations and the recent admission with 13 hours of highly symptomatic atrial fibrillation, not responding initially to metoprolol therapy. He opted for primary ablation over long-term antiarrhythmic strategy. DIOR prior to the procedure demonstrates no clots. DESCRIPTION OF PROCEDURE: The patient received propofol by Anesthesia specialist. After adequate level of sedation achieved with general anesthesia, the left and right femoral venous areas were prepped, draped, and anesthetized using subcutaneous lidocaine and cannulated under ultrasound guidance. On the left side, an 11-Amharic sheet and a Preface sheath was introduced through which an intracardiac echocardiogram probe was passed into the right atrium, which was used to monitor the pericardial space as well as the transseptal procedure throughout the case as for the catheter manipulation. Through the right-sided access, two 8-Amharic short sheaths were introduced and initially a ThermoCool SFST catheter was advanced to the right atrium and 3D map of the right atrium, His bundle, and CS positions were obtained. At that point, a DuoDeca catheter was advanced to the right atrium into the CS position pacing, mapping, and recording was performed in each location. Following that, the right-sided sheaths were exchanged to 2 SL1 sheath, which was used to perform a transseptal puncture after IV heparin bolus and drip was initiated. IV heparin was monitored throughout the case to keep the ACT with 350 and eventually reversed by protamine administration after completion of the case. The transseptal puncture was performed x2 under ICE catheter monitoring with a Sylantro powered needle and through the two sheaths, a ThermoCool SFST catheter as well as a 20-pole Lasso catheter was advanced to the left atrium. 3D map of the left atrial appendage and left ventricle were obtained. Standard pulmonary venous isolation was performed also isolating in the posterior wall successfully. An esophageal temperature probe was used throughout the case to avoid excessive heating of the esophagus. At the end of the case, basic EP study was performed with the following findings. Baseline cycle length was sinus rhythm at 697 milliseconds, CA 157 milliseconds, QRS 86 milliseconds, QT 340 milliseconds, AH 99 milliseconds, HV 35 milliseconds, AV Wenckebach cycle length was 380 milliseconds, AV justin ERP was 400/180 milliseconds on Isuprel. Retrograde VA conduction was noted at 390 milliseconds with concentric retrograde VA conduction with atrial extrastimuli testing, no dual AV justin physiology was observed. The burst atrial pacing in the coronary sinus terminating the left atrium was performed with up to a cycle length of 200 milliseconds of burst atrial pacing. No arrhythmia was induced. The Isuprel was administered at 20 mcg and no reconnections were noted. The catheter was pulled from the left atrium. The intracardiac echo probe was again used to assess pericardial space, which was free of effusion. The cardiac silhouette did not change throughout the case. The long sheaths were exchanged for short sheaths and Vascade closure was performed in the all four veins after protamine was used to reverse heparin. The patient tolerated the procedure well. No complications noted. CONCLUSION: 1. Successful four-vein pulmonary venous isolation and posterior wall isolation performed. 2. Normal AV justin and His-Purkinje function are seen. No evidence of dual AV justin physiology or accessory pathway is identified nor arrhythmia inducible in the end of the case. 3. No evidence of accessory pathway during LV pacing is noted. Job ID: [id number]
[2019-07-16] MEDS ORDERED: Acetaminophen 325 MG TAB PO PRN (13:56)
[2019-07-16] MEDS ORDERED: HYDROcodone/Acetaminophen 7.5/325 mg Tablet PO PRN (14:08)
[2019-07-16] MEDS ORDERED: Ondansetron PF 4 MG/2 ML Vial IVP PRN (14:08)
[2019-07-16] MEDS ORDERED: Ondansetron ODT 4 MG TAB PO PRN (14:08)
[2019-07-16] MEDS ORDERED: Bisacodyl 5 MG TAB PO PRN (14:08)
[2019-07-16] MEDS ORDERED: HYDROcodone/Acetaminophen 5/325 mg Tablet PO PRN (14:08)
[2019-07-16] MEDS ORDERED: Senokot S 8.6-50 MG TAB PO PRN (14:08)
[2019-07-16] MEDS ORDERED: hydrALAZINE 20 MG/ML VIAL SLOW IVP PRN ×2 (14:10→17:26)
[2019-07-16] MEDS: Sucralfate 1 GM TAB PO SCH ×2 (18:25→23:25)
--- NOTE | 2019-07-16 19:38 | HP ---
CHIEF COMPLAINT: Atrial fibrillation requiring ablation therapy. HISTORY OF PRESENT ILLNESS: Mr. Reed is a pleasant 33-year-old white gentleman with past medical history of atrial fibrillation, who presents for elective ablation therapy on 07/16/[address] Kendrick. The patient successfully underwent ablation therapy on 07/16/2019, please see full operative report for details, there were no intraoperative complications. I find the patient in the PACU postoperatively. He is lying flat per protocol. The patient denies pain. The patient is breathing well on room air. The patient's rhythm on the monitor is sinus with a rate of 70 to 80 beats per minute. Post-anesthetic, the patient does have some nausea, though he has not vomited at this time. The patient to be admitted to medical unit with telemetry for observation overnight. PAST MEDICAL HISTORY: 1. Atrial fibrillation. 2. Hypertension. 3. Hyperlipidemia. HOME MEDICATIONS: 1. Fish oil one tab p.o. daily. 2. Multivitamin one tab p.o. daily. 3. Xarelto 20 mg one tab p.o. daily. 4. Protonix 40 mg one tab p.o. daily. 5. Metoprolol succinate 25 mg one tab p.o. daily. 6. Adderall 20 mg one tab p.o. daily. 7. Lisinopril 20 mg one tab p.o. daily. SOCIAL HISTORY: The patient is a nonsmoker, who denies daily alcohol use, and no recreational drug use. The patient is a full code. ALLERGIES: NO KNOWN DRUG ALLERGIES. REVIEW OF SYSTEMS: A 10-point review of systems was performed and negative aside from what mentioned in history of present illness. PHYSICAL EXAMINATION: VITAL SIGNS: Pulse 78 and regular rhythm, blood pressure 110/78, temperature 98.7, respirations 16, O2 saturations 95% on room air. GENERAL: The patient is lying flat and he does appear to be in mild distress with upset stomach and nausea. HEENT: Head is normocephalic and atraumatic. Pupils are equally round and reactive to light and accommodation. Extraocular muscles are intact. There are no appreciated exudates or erythema on the tonsils. CARDIAC: S1 and S2 are present. No appreciated murmurs, rubs, or gallops. LUNGS: Clear to auscultation bilaterally. No wheezes, rales, or rhonchi. ABDOMEN: Soft, nontender, and nondistended without guarding or rigidity. No appreciated masses or hepatosplenomegaly. MUSCULOSKELETAL: Spine is in good alignment. Lower extremities are negative for edema. Symmetric with no gross abnormalities. NEUROLOGIC: Cranial nerves 2 through 12 grossly intact. Strength and sensation are symmetric and intact throughout. SKIN: Without rashes or lesions. PSYCHIATRIC: The patient is alert and oriented to self, location, time, and situation. The patient has normal affect. LABORATORY DATA: WBC 6.7, RBC 5.2, hemoglobin 16.4, hematocrit 48.1, MCV 92.2, platelets 215. PT 13.3, INR 1.0, PTT 30.4. Chemistry; sodium 137, potassium 4.3, chloride 105, carbon dioxide 25, anion gap 11, BUN 13, creatinine 1.36, estimated GFR 60, glucose 88, calcium 9.1. ASSESSMENT AND PLAN: 1. Atrial fibrillation, status post ablation therapy on 07/16/[address] Kendrick, please see full report for details. Procedure was successful and the patient is currently in sinus rhythm. We will continue the patient's rate control medication with metoprolol in addition to Xarelto therapy per recommendations of Cardiology. Continuous telemetry to monitor for arrhythmias. Symptomatic control and postoperative care as needed. 2. Postoperative nausea without vomiting. The patient is likely experiencing nausea secondary to anesthetic type medications that were used intraoperatively. Symptomatic medications were added with IV and oral Zofran as needed. 3. Hyperlipidemia, continue home medications. 4. Elevated serum creatinine. The patient does have a muscular build and his elevated serum creatinine may be normal baseline for him. We will monitor the patient's creatinine on serial lab exam tomorrow morning and if worsens, we will consider Nephrology input. 5. Attention deficit disorder, continue home medications as able. Job ID: [id number]
[2019-07-16] MEDS: Lisinopril 20 MG TAB PO SCH (20:46)
[2019-07-16] MEDS ORDERED: diphenhydrAMINE 25 MG CAP PO SCH (21:00)
[2019-07-16] MEDS ORDERED: Rivaroxaban 10 MG TAB PO SCH (21:00)
[2019-07-16] MEDS: Ketorolac Tromethamine 30 MG/ML VIAL IVP PRN (23:01)
[2019-07-16] MEDS ORDERED: Sodium Chloride 0.9% 500 ML IV SCH (23:15)
--- NOTE | 2019-07-16 23:26 | RAD ---
Chest AP view INDICATION: Shortness of breath, chest pain and palpitations COMPARISON: February 27, 2019 FINDINGS: Lungs:The lungs are clear Cardiac silhouette:The heart size is accentuated by exam technique. Pulmonary vasculature:Normal Pleural spaces:No pleural effusion or pneumothorax is demonstrated. Upper abdomen:No abnormality seen. Osseous structures: No acute osseous abnormality. Additional findings:None. IMPRESSION: No acute cardiopulmonary abnormality.
[2019-07-17 00:01] LABS: Magnesium 1.5 mg/dL (1.6-2.6); Potassium 3.9 mmol/L (3.5-5.1)
[2019-07-17] MEDS: Lisinopril 20 MG TAB PO SCH (01:25)
[2019-07-17 01:36] LABS: Hemoglobin 14.6 g/dL (14.0-18.0)
[2019-07-17] MEDS ORDERED: traMADol HCl 50 MG TAB PO SCH (01:45)
[2019-07-17] MEDS ORDERED: Sodium Chloride 0.9% 250 ML IV SCH (01:45)
[2019-07-17] MEDS ORDERED: Magnesium 2 GM/50 ML 2 GM in Premix Bag 1 BAG IVPB SCH (01:45)
--- NOTE | 2019-07-17 02:25 | PDOC.EVN ---
Event Note - Event Note Event Note: Patient complaining of chest pain. Given toradol and norco with minimal relief. He does have underlying anxiety. Reports pain in the center of his chest which is worse with inspiration. He has pain in between his shoulder blades but unsure which is worse, or which started first and states he has pain in his shoulder blades at baseline from previous injury. Pain was 8/10 and now 5/10 in severity. EKG was done, NSR HR 90. Trop of 4. CXR unremarkable. Discussed with Dr. Rasmussen who states it would be expected if he has pericarditis due to ablation. BP however was 100 systolic, I gave 500 cc bolus with plans to administer ativan for anxiety and morphine for pain. Following fluids, BP dropped to 88/60, this was confirmed manually and equal bilaterally. HR 60s. Stat Echo ordered and Dr. Rasmussen advised notifying Dr. Kendrick. 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 Advised to proceed with stat echo to rule out tamponade. Advised to hold on morphine until stat echo done. Stat H/H normal. Additional 500 cc NS to be given. Dr. Monk aware of plan as above.
[2019-07-17 05:32] LABS: #Lymphocytes 1.2 thou/uL (1.20-3.40); #Monocytes 1.7 thou/uL (0.11-0.59); #Neutrophils 12.1 thou/uL (1.40-6.50); %Eosinophils 0.1 % (0.0-10.0); %Lymphocytes 8.1 % (21.0-51.0); %Monocytes 11.2 % (0.0-10.0); %Neutrophils 80.6 % (42.0-75.0); Hemoglobin 13.8 g/dL (14.0-18.0); Mean Corpuscular HGB CONC 33.5 g/dL (32.0-36.0); Mean Corpuscular Hemoglobin 31.4 pg (27.0-31.0); Mean Corpuscular Volume 93.7 fL (78.0-98.0); Platelet Count 202 thou/uL (130-400); RBC Distribution Width 12.2 % (11.5-14.5); White Blood Cell (WBC) Count 15.1 thou/uL (4.8-10.8)
[2019-07-17 06:00] LABS: Anion Gap 12 mmol/L (10-20); BUN (Urea Nitrogen) 15 mg/dL (8.9-20.6); Calc. Creatinine Clearance 113 mL/min (70-130); Calcium 8.5 mg/dL (7.8-10.44); Carbon Dioxide 24 mmol/L (22-29); Chloride 104 mmol/L (98-107); Estimated GFR-MDRD 63; Glucose 132 mg/dL (70-105); Potassium 3.8 mmol/L (3.5-5.1); Sodium 136 mmol/L (136-145)
[2019-07-17] MEDS: Sucralfate 1 GM TAB PO SCH ×2 (06:08→11:51)
[2019-07-17] MEDS: Ketorolac Tromethamine 30 MG/ML VIAL IVP PRN ×2 (06:09→13:38)
[2019-07-17 06:16] LABS: CKMB 6.3 ng/mL (0-6.6)
[2019-07-17] MEDS ORDERED: ADDERALL 20 MG PO SCH (09:00)
[2019-07-17] MEDS ORDERED: Fish Oil 1,000 MG CAP PO SCH (09:00)
[2019-07-17] MEDS ORDERED: Multivit, Therapeutic 1 TAB PO SCH (09:00)
[2019-07-17] MEDS ORDERED: Colchicine 0.6 MG TAB PO SCH (09:00)
--- NOTE | 2019-07-17 09:51 | PRG ---
DATE OF SERVICE: 07/17/2019 SUBJECTIVE: Mr. Reed had a rough night with pleuritic chest discomforts overnight. He had borderline blood pressures and required some fluid boluses to improve his pressure readings. He felt better after Toradol administration. He had an echo done overnight. Currently, he is feeling fair. Minimal chest discomforts after the Toradol effect, second dose of Toradol. He denies passing out, no stroke-like symptoms. No neurological deficits. No fever, chills. or cough OBJECTIVE: VITAL SIGNS: Blood pressure at 07:35 a.m. is 90/55. The lowest reading was 79/60 at 11. GENERAL: This is an alert and oriented man, in no apparent distress at this point. NECK: Supple. Jugular veins not distended. CHEST: Coarse without crackles. CARDIAC: Heart sounds are regular rate and rhythm. I do not hear murmur or gallop or rub. ABDOMEN: Benign. Bowel sounds positive. EXTREMITIES: Lower extremities without edema, clubbing, or cyanosis. Pulses are adequate. NEUROLOGIC: The patient is nonfocal. MUSCULOSKELETAL: No joint swelling or deformities. Groin sites without significant hematoma. DATABASE: EKG this morning shows sinus rhythm, rate of 84 beats per minute. Generalized mild ST elevation is seen without reciprocal depression, could represent pericarditis. Mild PA depression also is noted. The 2D echo report from this morning shows LVEF 55% to 60%. No significant valvular heart disease. No pericardial effusion. No wall motion abnormalities. LABORATORY DATA: White cell count is 15.1, hemoglobin 13.8, platelet count is 202. Sodium 136, potassium 3.8, BUN is 15, creatinine 1.3. The troponin levels are 4.3, 5.1, and 5.7 consecutively. ASSESSMENT AND PLAN: Mr. Reed is a pleasant 33-year-old man with prior history of highly symptomatic paroxysmal atrial fibrillation but structurally normal heart , who underwent routine pulmonary venous isolation procedure yesterday, total of 22 minutes of ablation was performed isolating the pulmonary veins and posterior wall. He had borderline blood pressures overnight, receiving some boluses which brought his blood pressure up. He also did receive his metoprolol dose last night, but lisinopril was held. He also had chest pains typical for pleuritic postablation pains. Cardiac enzymes were elevated, not unusual for post ablation state. Also, his EKG suggestive of mild generalized pericarditis likely due to the recent ablation. Toradol seems to have improved his symptoms. At this point, we will continue Toradol and possibly oral nonsteroidal as needed at home as well. I will add colchicine to the current regimen. At this point, no bleeding in groins or in the pericardium-per ECHO. Hemoglobin levels are reasonably stable. We will continue to administer Carafate and Protonix for history of GERD as well as recent ablation. Once patient's pain control is reasonable, he might be able to go home today or tomorrow. Job ID: [id number] [facility]
[2019-07-17 15:28] VITALS: BP 103/60; TEMP 98.3
--- NOTE | 2019-07-17 22:16 | ECHO ---
REFERRING PHYSICIAN: Dr. Fady Rubi REASON FOR PROCEDURE: The patient is a 33-year-old man with prior history of paroxysmal atrial fibrillation with palpitatio ns. Was admitted recently with a prolonged period of atrial fibrillation. He declines antiarrhythmic agents and prefers ablation. He is here for a DIOR prior to planned ablation procedure. PROCEDURE: The patient received Propofol and general anesthesia by Anesthesia specialist. The stand kyle transesophageal echocardiogram probe was passed into the esophagus without difficulty. Patient t olerated the procedure well, no complications noted. RESULTS: Left atrium is upper limits normal in size about 4.1 cm in horizontal diameter. The left atrial appe ndage well visualized contains no clots. The left atrial appendage velocities are adequate. Four out of four pulmonary veins were well seen. Interatrial septum has a small foramen ovale patency visualiz ed. Some minor flow noted between the septum secundum and the aortic side of the left atrium. It is v dalila restrictive with left to right flow only. Right sided chambers are nondilated. Valvular structure s appear to be normal. No significant mitral, aortic, tricuspid or pulmonary regurgitation or stenosi s seen. The pericardial space without effusion. Left ventricular systolic function is preserved. Wal l motion and thickness is normal. The visualized portion of ascending and descending aorta without an eurysm, dissection or significant atheroma. CONCLUSION: 1. No intracardiac clots. 2. Normal LV systolic function. 3. Upper mid normal left atrial size. 4. Normal pulmonary physiology. 5. Small restrictive PFO is visualized with left to right shunt only. PLAN: Proceed with ablation procedure.
--- NOTE | 2019-07-18 10:04 | DIS ---
DATE OF ADMISSION: 07/16/2019 DATE OF DISCHARGE: 07/17/2019 DISCHARGE DISPOSITION: Home. FOLLOWUP: 1. Follow up with primary care physician out of town in 1 week. 2. Follow up with Electrophysiology, Dr. Kendrick in 2 to 3 weeks. ALLERGIES: NO KNOWN DRUG ALLERGIES. DISCHARGE MEDICATIONS: 1. Xanax as needed. 2. Colchicine 0.6 mg b.i.d. for 2 weeks. 3. Sucralfate 1 g every 6 hourly for next 2 weeks. All other home medications were left unchanged. INPATIENT CNC MANAGER: Electrophysiology, Dr. Kendrick. BRIEF HOSPITAL COURSE: The patient is a 33-year-old male with paroxysmal atrial fibrillation, was scheduled for elective ablation by Dr. Kendrick. The Hospitalist Team admitted the patient. He underwent the above procedure on July 16, 2019. The transesophageal echocardiogram was negative for intracardiac clots. He developed hypotension after the procedure that improved with IV fluids. His troponin also increased to 5.7 with a maximum CK-MB of 8.0 after the procedure. According to Dr. Kendrick, the patient probably has pericarditis. Colchicine has been started. His chest pain has significantly improved. He was advised to reduce his lisinopril and metoprolol-XL if his blood pressures are below 110. Due to significant anxiety, low-dose Xanax has been added temporarily until he is seen by his primary care physician 2 weeks later. His primary care physician is in his hometown in [place]. The patient currently works in [employer] and will be returning back home after 2 weeks. He has been cleared by Dr. Kendrick for discharge. FINAL DIAGNOSES: 1. Paroxysmal atrial fibrillation, status post ablation. 2. Acute pericarditis, probably secondary to ablation. 3. Hypertension. 4. Hyperlipidemia. 5. Anxiety. 6. Chronic anticoagulation. 7. Obesity with a BMI of 32.5. 8. Elevated troponin secondary to acute pericarditis. 9. Hypomagnesemia, replaced. 10. Chronic kidney disease, stage 2. Plan of care was discussed with the patient in detail, he stated understanding. Job ID: [id number]
== END 2019-07-17 16:18 | disposition home or self-care (01) ==
LOC: CCL 06:44 → 2SW 13:49
PROVIDERS: ADMIT Internal Medicine; ATTEND Internal Medicine
PROC: 02583ZZ Destruction of Conduction Mechanism, Percutaneous Approach (ICD-10-PCS; principal; 2019-07-17)
PROC: B245ZZ4 Ultrasonography of Left Heart, Transesophageal (ICD-10-PCS; 2019-07-17)
DX: I48.0 Paroxysmal atrial fibrillation (principal); I30.9 Acute pericarditis, unspecified; I12.9 Hypertensive chronic kidney disease with stage 1 through stage 4 chronic kidney disease, or unspecified chronic kidney disease; N18.2 Chronic kidney disease, stage 2 (mild); E78.5 Hyperlipidemia, unspecified; E66.9 Obesity, unspecified; E83.42 Hypomagnesemia; F98.8 Other specified behavioral and emotional disorders with onset usually occurring in childhood and adolescence; Z68.32 Body mass index [BMI] 32.0-32.9, adult; Z79.01 Long term (current) use of anticoagulants; Z79.899 Other long term (current) drug therapy
CPT/HCPCS: 36415; 71045; 76942; 80048; 82553; 83735; 84484; 85025; 85347; 85610; 85730; 93005; 93010; 93306; 93312; 93613; 93622; 93623; 93656; 93662; 96374; 96376; C1731; C1732; C1759; C1769; G0378; J1644; J1885; J2001; J2250; J2405; J2704; J2720; J3010; J3475; Q0163